=== PATIENT | male | born 1975 | race Caucasian/White ===

== ENCOUNTER → 2016-12-14 | Day surgery (SDC) | payer MEDICAID | END | disposition home or self-care (01) | LOC: FIMAGING 14:18 | PROVIDERS: ATTEND Neurological Surgery | DX: M51.17 Intervertebral disc disorders with radiculopathy, lumbosacral region (principal); M51.37 Other intervertebral disc degeneration, lumbosacral region; M54.5 Low back pain; Z53.9 Procedure and treatment not carried out, unspecified reason ==

== ENCOUNTER 2016-12-15 10:59 | Emergency (ER) | payer MEDICAID ==
[2016-12-15] MEDS ORDERED: ONDANSETRON 4 MG/2 ML VIAL IVP ONE ×2 (11:10→11:49)
[2016-12-15] MEDS ORDERED: NS 1,000 ML IV ONE ×2 (11:10→11:54)
--- NOTE | 2016-12-15 11:41 | EDPHY ---
H & P Time Seen by Provider: 12/15/16 11:21 HPI/ROS: CHIEF COMPLAINT: Vomiting and diarrhea HISTORY OF PRESENT ILLNESS: 41-year-old male presents with vomiting and diarrhea. Onset of nausea, vomiting and diarrhea this morning. Multiple episodes since then. Associated with mild abdominal cramping. No fever and no hematemesis or hematochezia. No known ill contacts or bad food ingestion. Similar episode 10 days ago, which completely resolved. REVIEW OF SYSTEMS: Constitutional: No fever, no chills Eyes: No visual changes ENT: No sore throat Respiratory: No cough, no shortness of breath Cardiac: No chest pain Genitourinary: No hematuria, no dysuria Musculoskeletal: No leg pain or swelling Skin: No rash Neurological: No headache Psychiatric: No depression Past Medical/Surgical History: Denies Social History: No alcohol use PCP: Connie Smoking Status: Former smoker Physical Exam: General Appearance: Alert, pleasant, nontoxic-appearing Eyes: Pupils equal and round, no conjunctival pallor ENT, Mouth: Mucous membranes moist Neck: Normal inspection Respiratory: Lungs are clear to auscultation Cardiovascular: Regular rate and rhythm Gastrointestinal: Abdomen is soft and nontender Neurological: A&O, nonfocal, normal gait Skin: Warm and dry Extremities: normal inspection Psychiatric: Mood and affect normal Constitutional: Initial Vital Signs Temperature (C) 36.3 C 12/15/16 11:04 Heart Rate 84 12/15/16 11:04 Respiratory Rate 16 12/15/16 11:04 Blood Pressure 121/89 H 12/15/16 11:04 O2 Sat (%) 97 12/15/16 11:04 O2 Delivery Mode Room Air Allergies/Adverse Reactions: Penicillins Allergy (Verified 01/22/16 21:55) Hives Home Medications: Medication Instructions Recorded Amitriptyline HCl 12/15/16 Benadryl 12/15/16 CLONAZEPAM 12/15/16 Ondansetron Odt [Zofran Odt 4 mg 4 mg PO Q4 PRN #6 tab 12/15/16 (*)] Tapentadol HCl [Nucynta] 50 mg PO 12/15/16 oxyCODONE IR 12/15/16 Medical Decision Making ED Course/Re-evaluation: IV normal saline 1 L and Zofran 4 mg IV given. Patient had a bowel movement while in the emergency department and this was sent for stool culture. While he was in the bathroom, the nausea increased. Repeat dose of IV Zofran was given. After this, he felt much better. He was able to tolerate ice chips well. Repeat abdominal exam remains unchanged. Precautions given. - Data Points Medications Given: Discontinued Medications Sodium Chloride (Ns) 1,000 mls @ 0 mls/hr IV ONCE ONE PRN Reason: Wide Open Stop: 12/15/16 11:11 Last Admin: 12/15/16 11:14 Dose: 1,000 mls Sodium Chloride (Ns) 1,000 mls @ 0 mls/hr IV ONCE ONE PRN Reason: Wide Open Stop: 12/15/16 11:55 Last Admin: 12/15/16 11:55 Dose: 1,000 mls Ondansetron HCl (Zofran) 4 mg IVP EDNOW ONE Stop: 12/15/16 11:11 Last Admin: 12/15/16 11:15 Dose: 4 mg Ondansetron HCl (Zofran) 4 mg IVP EDNOW ONE Stop: 12/15/16 11:50 Last Admin: 12/15/16 11:55 Dose: 4 mg Departure - Departure Disposition: Home, Routine, Self-Care Clinical Impression: Acute gastroenteritis Condition: Good Instructions: Gastroenteritis (ED) Additional Instructions: Clear liquids for 24 hours. Advance diet as tolerated. Follow-up in 24 hours if vomiting persists. Referrals: CONNIE SUE,. [Primary Care Provider] - As per Instructions Prescriptions: Ondansetron Odt [Zofran Odt 4 mg (*)] 4 mg PO Q4 PRN #6 tab PRN Reason: Nausea
[2016-12-15 13:05] VITALS: BP 141/87; PULSE 85; RESP 19; TEMP 98.2; O2SAT 96
== END 2016-12-15 12:51 | disposition home or self-care (01) ==
LOC: CED 10:59
PROC: 3E0337Z Introduction of Electrolytic and Water Balance Substance into Peripheral Vein, Percutaneous Approach (ICD-10-PCS; principal; 2016-12-15)
DX: K52.9 Noninfective gastroenteritis and colitis, unspecified (principal); Z87.891 Personal history of nicotine dependence
CPT/HCPCS: 96374; J2405

== ENCOUNTER 2016-12-26 12:08 | Day surgery (SDC) | payer MEDICAID ==
[2016-12-26] MEDS ORDERED: MIDAZOLAM 2 MG/2 ML VIAL IVP PRN (12:35)
[2016-12-26] MEDS ORDERED: NALOXONE HCL 0.4 MG/ML INJ IVP PRN (12:35)
[2016-12-26] MEDS ORDERED: FLUMAZENIL 0.5 MG/5 ML MDV IVP PRN (12:35)
[2016-12-26] MEDS ORDERED: MEPERIDINE 25 MG/ML SYR IVP PRN (12:35)
[2016-12-26] MEDS ORDERED: fentaNYL 100 MCG/2 ML INJ IVP PRN (12:35)
[2016-12-26 12:45] VITALS: PULSE 71; RESP 14; TEMP 97.4
[2016-12-26] MEDS ORDERED: NS 1,000 ML IV SCH (12:45)
--- NOTE | 2016-12-26 13:30 | PDPROPOC ---
Sedation Plan of Care Sedation Plan of Care: vital signs stable, mental status noted, patient educated of risks, benefits, alternatives, patient can tolerate sedation ASA Classification: ASA 1 Planned drugs: fentanyl, midazolam Mallampati Score: Class 1 Mallampati Reference Image: Patient passed 3-3-2 rule?: Yes
--- NOTE | 2016-12-26 13:35 | PDGENHP ---
History & Physical Chief Complaint: Lower back pain, previously radiating down right leg. History of Present Illness: Three previous back injections. 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 No history of hepatitis. Heart palpitations. Asthma. Kidney stones on multiple occasions. Relevant Physical Exam: Lungs: clear to auscultation. Heart: RRR 64 bpm, no murmur.
[2016-12-26] MEDS ORDERED: fentaNYL 100 MCG/2 ML INJ ONE (14:09)
[2016-12-26] MEDS ORDERED: MIDAZOLAM 2 MG/2 ML VIAL ONE (14:09)
[2016-12-26] MEDS ORDERED: HYDROmorphONE/DILAUDID 2 MG/ML INJ ONE (14:12)
[2016-12-26] MEDS ORDERED: BUPIVACAINE 0.5% 30 ML SDV ONE (14:34)
[2016-12-26] MEDS ORDERED: LIDOCAINE 1% 300 MG/30 ML SDV ONE (14:34)
[2016-12-26] MEDS ORDERED: IOPAMIDOL (ISOVUE-M 300) 15 ML VIAL ONE (14:35)
--- NOTE | 2016-12-26 14:43 | PDRADPN ---
Radiology Procedure Note Date of Procedure: 12/26/16 Radiologist: Jericho Logan Anesthesia: IV Sedation Pre-op Diagnosis: Back pain Post-op Diagnosis: same Indication: Uncertainty of localization of pain generator Procedure: Bilateral facet injections L3-4, L4-5, L5-S1 Finding(s): 1% xylocaine and 0.5% bupivicaine injected into each facet joint. 0.6--0.7 ml per joint. The patient refused steroid injection, understanding that anesthesia will be gone tomorrow. Inf/Abcess present in the surg proc area at time of surgery?: No EBL: Minimal Complications: 0
[2016-12-26] MEDS ORDERED: ONDANSETRON 4 MG/2 ML VIAL IVP PRN (14:44)
[2016-12-26 15:42] VITALS: BP 116/75; O2SAT 98
== END 2016-12-26 15:40 | disposition home or self-care (01) ==
LOC: FIMAGING 12:08
PROVIDERS: ATTEND Neurological Surgery
PROC: 3E0R3BZ Introduction of Anesthetic Agent into Spinal Canal, Percutaneous Approach (ICD-10-PCS; principal; 2016-12-26 14:47)
DX: M51.17 Intervertebral disc disorders with radiculopathy, lumbosacral region (principal); M51.37 Other intervertebral disc degeneration, lumbosacral region
CPT/HCPCS: J1170; J2250; J2310; J3010; Q9967

== ENCOUNTER 2017-01-07 11:33 | Emergency (ER) | payer MEDICAID ==
[2017-01-07 11:49] VITALS: PULSE 68; RESP 16; TEMP 97.3
--- NOTE | 2017-01-07 12:05 | EDPHY ---
H & P Time Seen by Provider: 01/07/17 11:53 HPI/ROS: CC: right wrist pain HPI: For T 1-year-old medically stable male took a fall yesterday approximately 20 hours ago. He needed to climb into the second-story sliding glass door in order to get his keys as he locked himself out. He knew the door was open. The 1st time to climbing up the he got hold of a bowel started that was actually rotted would it gave wave any fell backward. At the time that he started falling he was approximately 7 feet off the ground. He complains of landing on the right wrist with it in a backward position, as if behind him and then onto his right side - he does complain of a mild swelling and bruising scrape to the right lateral thigh. Declines x-ray of that area. However the right wrist is a different story. He complains quite a bit of discomfort and finds his usual pain regimen for his 3-year-old herniated disc with annular tear as not being sufficient. He had trouble sleeping last night. 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 I thereby caution the man about driving with the injured arm Pt queried and denies: prior hx of substance abuse family history of substance abuse or current or prior psychiatric history. Current pain management program is by a marketing support specialist and patient is aware of the potential of taking extra dosing and problems thereby. Thus, will go ahead and arrange for a 4 day supply of additional medications pending resolution of his symptomatology. He does have a history of left wrist scaphoid fractures x2 with a particular problem with delayed union some 15 years ago while living in [place]. That was back during his avid skateboarding days ROS: Constitutional - feeling well before the fall Head no injury or hematoma. Eyes - no diplopia, blurred vision. ENT - no earache, no fluid from ear. No fluid from nose. No facial injury Neck: no pain or decreased ROM Thorax did not injury to chest or ribs or spine, no shortness of breath Abdominal - denies any abdomen, or back injury. No nausea. His back feels the same as it always does Musculoskeletal - no joint or muscle pain. Integument - no lacerations Neurological - no headache, numbness, tingling, or paresthesias. No focal motor weakness. No amnesia or LOC. No fluid from ear or nose 10 point ROS otherwise negative Smoking Status: Former smoker Physical Exam: Constitutional: Well-nourished, well-developed, no acute distress. No odor of alcohol Neck: He moves his head freely indicating to me that he has no neck discomfort Eyes: Pupils equal and reactive. ENT: Ears are without hemotympanum. Mouth exam, atraumatic. Chest: No signs of splinting respirations. Back: Moves reasonably well into and out of the stretcher in order to have the exact x-rays examined Musculoskeletal: With SPECT to the right hand there is mild soft tissue swelling of all the digits. The skin is clear and intact. There is particular tenderness over the carpal row 1. At the base of digits metacarpals # 4 and 5. No snuffbox tenderness noted. Skin: No observed abrasions or lacerations. Skin is warm and dry. Normal motor and sensation Neuro: Alert and oriented with a GCS of 15. No acute distress. No headache. Psych: Normal mood and affect. Constitutional: Initial Vital Signs Temperature (C) 36.3 C 01/07/17 11:44 Heart Rate 68 01/07/17 11:44 Respiratory Rate 16 01/07/17 11:44 Blood Pressure 115/76 01/07/17 11:44 O2 Sat (%) 94 01/07/17 11:44 O2 Delivery Mode Room Air Allergies/Adverse Reactions: david Allergy (Verified 01/07/17 11:43) Anaphylaxis Penicillins Allergy (Verified 01/07/17 11:43) Hives Home Medications: Medication Instructions Recorded Benadryl 50 mg PO HS PRN 12/15/16 CLONAZEPAM 0.5 mg PO HS 12/15/16 Tapentadol HCl [Nucynta] 100 mg PO QID 12/15/16 oxyCODONE IR 5 mg PO QID 12/15/16 Oxycodone HCl 16 mg PO Q6H PRN #20 capsule 01/07/17 Medical Decision Making - Diagnostics Imaging Results: My Plain Film Review: Plain film of right wrist 4 view series. Interpreted by radiologist. Films reviewed me. [no signs of fracture. ] ED Course/Re-evaluation: As noted above we had discussion regarding pain management. He feels that his concurrent medication dose of Oxy IR 5 mg four times daily is not sufficient. Thus will go ahead and have him increase his dose to 10 mg four times daily p.r.n. in the near term. He will be referred Orthopedics for follow-up and consideration of further diagnostic imaging if he is not having significant improvement. During that time he will be wearing a Velcro splint in order to support and allow the wrist to heal. He is adamant that he feels well otherwise and does not need any further diagnostic evaluation or exam. Splint was applied by the tech under my supervision and showed good alignment and cap refill thereafter Differential Diagnosis: The differential diagnosis includes but is not limited to: Fracture, Sprain, Strain, Dislocation, Nerve injury, Contusion Departure - Departure Disposition: Home, Routine, Self-Care Clinical Impression: Chronic pain, on narcotics Sprain of wrist, right Qualifiers: Encounter type: initial encounter Qualified Code(s): S63.501A - Unspecified sprain of right wrist, initial encounter Condition: Good Instructions: Wrist Sprain (ED) Additional Instructions: You may add Tylenol to your pain medications or take extra Oxy IR - thus the Rx , though at some finite risk of addiction. This is small but not zero. The splint will help a lot, as will elevation. See Ortho in a week to 10 days. Referrals: CONNIE SUE,. [Primary Care Provider] - As per Instructions Stand Alone Forms: Work Limited Duty Prescriptions: Oxycodone HCl 16 mg PO Q6H PRN #20 capsule PRN Reason: pain
[2017-01-07 13:03] VITALS: BP 117/75; O2SAT 96
== END 2017-01-07 12:50 | disposition home or self-care (01) ==
LOC: CED 11:33
DX: S63.501A Unspecified sprain of right wrist, initial encounter (principal); G89.29 Other chronic pain; Z87.891 Personal history of nicotine dependence; W17.89XA Other fall from one level to another, initial encounter; Y99.8 Other external cause status; Y93.39 Activity, other involving climbing, rappelling and jumping off
CPT/HCPCS: 73110-PO

== ENCOUNTER 2018-06-08 18:24 | Emergency (ER) | payer MEDICAID ==
[2018-06-08] MEDS ORDERED: ALBUTEROL 3 ML DEYVIAL IH ONE ×4 (18:25→20:00)
[2018-06-08] MEDS ORDERED: LORazepam 2 MG/ML INJ IVP ONE ×2 (18:44→19:11)
[2018-06-08] MEDS ORDERED: EPINEPHrine 1 MG/10 ML SYR IVP ONE (18:45)
[2018-06-08] MEDS: ALBUTEROL 3 ML DEYVIAL IH ONE ×2 (18:45→18:55)
[2018-06-08] MEDS ORDERED: methylPREDNISolone SOD SUCC 125 MG/2 ML VIAL IVP ONE (18:45)
[2018-06-08] MEDS ORDERED: MAGNESIUM SULF 2 GM/WATER 50 ML IV ONE (18:46)
[2018-06-08] MEDS ORDERED: NS 1,000 ML IV ONE (18:47)
[2018-06-08] MEDS ORDERED: IPRATROPIUM/ALBUTEROL 3 ML DEYVIAL IH ONE (18:56)
--- NOTE | 2018-06-08 19:08 | EDPHY ---
H & P Stated Complaint: shortness of breath since this am Time Seen by Provider: 06/08/18 18:28 HPI/ROS: This patient arrived by private vehicle in respiratory distress tachypneic with very tight wheezing and hypoxia to the 70s. His assisted in providing history explaining that he developed a dry cough last night typical of his asthma exacerbations but was not improving with albuterol inhaler. He thinks that this allergy was triggered by pet birds. Apparently the birds are usually not in close proximity but were over the last 24 hr. He arrives stating "can not breathe". ROS: Constitutional: No recent fevers. He did have a mild URI 2 weeks ago but other than the dry cough over the past 24 hr no other recent infectious symptoms. Pulmonary: Short of breath but he denies any pain. He notices wheezing. Cardiovascular: No chest pain heart palpitations or lightheadedness. No lower extremity swelling. GI: No abdominal pain, nausea or vomiting Integumentary: No skin rash or pallor. No diaphoresis. Neuro: No complaints 10 point review of symptoms is performed and otherwise negative with exception of pertinent positives and negatives listed in HPI and ROS Source: Patient, Family (His assists with history) Exam Limitations: Clinical condition (Initially patient has 1 word dyspnea. Later he is able to for provide more of his history after tx) - Personal History Current Tetanus Diphtheria and Acellular Pertussis (TDAP): Yes Tetanus Vaccine Date: unsure - Medical/Surgical History Hx Asthma: Yes Hx Chronic Respiratory Disease: No Hx Diabetes: No Hx Cardiac Disease: No Hx Renal Disease: No Hx Cirrhosis: No Hx Alcoholism: No Hx HIV/AIDS: No Hx Splenectomy or Spleen Trauma: No Other PMH: med hx [id number],kidney stones. surg-lithotripsy,chronic back pain,asthma,anayphylaxis - Family History Significant Family History: No pertinent family hx - Social History Smoking Status: Light smoker Alcohol Use: Occasionally Drug Use: None - Physical Exam Exam: Vital signs notable for afebrile state, tachycardic, tachypneic and hypoxic. General Appearance: Alert, arrives in respiratory distress. Sitting straight upright gasping for breath. Eyes: Pupils equal and round no pallor or injection. ENT, Mouth: Mucous membranes moist. Oropharynx: Mallampati 1 airway with no erythema or exudates. No angioedema. No dysphonia. No stridor. No drooling. Respiratory: He has 1 word dyspnea he is in a tripod position gasping for breath. Cardiovascular: Tachycardic. No murmur gallop rub is appreciated. No peripheral edema. Gastrointestinal: Abdomen is soft and nontender, no masses, bowel sounds normal. Neurological: GCS 15. Skin: Mild pallor. Musculoskeletal: Neck is supple nontender. Extremities are symmetrical, full range of motion. No calf swelling or tenderness. Psychiatric: Anxious affect. DIFFERENTIAL DIAGNOSIS: After history and physical exam a partial differential diagnosis was considered for asthma exacerbation, acute allergic response, bronchitis, pneumonia, doubt CHF. Constitutional: Initial Vital Signs O2 Sat (%) 79 L 06/08/18 18:40 O2 Delivery Mode Room Air O2 (L/minute) 12 Allergies/Adverse Reactions: david Allergy (Verified 01/07/17 11:43) Anaphylaxis Penicillins Allergy (Verified 01/07/17 11:43) Hives Home Medications: Medication Instructions Recorded Benadryl 50 mg PO HS PRN 12/15/16 CLONAZEPAM 0.5 mg PO HS 12/15/16 Tapentadol HCl [Nucynta] 100 mg PO QID 12/15/16 oxyCODONE IR 5 mg PO QID 12/15/16 Oxycodone HCl 16 mg PO Q6H PRN #20 capsule 01/07/17 Medical Decision Making - Diagnostics EKG Interpretation: 12 lead indication indication dyspnea performed at 7:20 a.m. Sinus tachycardia at 1:25 a.m. Intervals: Normal throughout [place]: P of 63, QRS of 113, T of [address] segments: Normal by my interpretation with exception of a S1 T3 configuration Overall assessment sinus tachycardia with right axis deviation-consider right heart strain consistent with respiratory distress from asthma exacerbation ED Course/Re-evaluation: Patient is placed on a monitor and given supplemental O2 on arrival. Placed in a simple face mask with high-flow with O2 sat improved to the high 80s initially. He is then given sequential nebs Start with a DuoNeb followed by 3 more albuterol nebs total of 10 mg of albuterol over the 1st 45 min with marked improvement. Patient is able to speak in sentences thereafter but still is quite tight. He was switch from face mask to nasal cannula with nebulizer shortly after arrival and gradually improved to an O2 sat in the 90s. Currently at 7:13 p.m., the patient has an O2 sat of 96% on 6 L nasal cannula. He reports subjective improvement but still has mild dyspnea. In addition, the patient was started on 2 g of magnesium IV shortly after arrival, 0.3 of epinephrine IM and for anxiety Ativan 1 mg IV The patient declines chest x-ray. I explained the rationale for obtaining the chest x-ray with his significant leukocytosis 20,000 could consider pneumonia and differential diagnosis as well as potential complications such as pneumothorax from asthma. He understands this potential but declines chest x- ray at this time. Bedside critical care time: 30 min Studies: [place] [id number]. No anemia. Normal platelet count. Basic metabolic panel is normal. At 7:20 p.m. The patient appears comfortable on nasal cannula O2 with respiratory distress resolved. Answered he in all this 's questions. He continues to decline chest x-ray. I spoke with [facility] direct admit number at [phone] requesting hospitalist. Family requests [facility] due to proximity to their home for his admission. I spoke with Dr. Damon, hospitalist with [facility] who accepts this patient for transfer/direct admission at 7:20 p.m., awaiting bed assignment. At 7:30 p.m. On recheck patient's O2 sat is at 90% on 6 L. I ordered another albuterol neb informed him of the accepting physician's name and planned - Data Points Medications Given: Magnesium Sulfate (Magnesium Sulf 2 Gm (Premix)) 50 mls @ 50 mls/hr IV EDNOW ONE Stop: 06/08/18 19:45 Last Admin: 06/08/18 18:34 Dose: 50 mls Discontinued Medications Epinephrine HCl (Epinephrine) 0.3 mg IVP EDNOW ONE Stop: 06/08/18 18:46 Last Admin: 06/08/18 18:25 Dose: 0.3 mg Sodium Chloride (Ns) 1,000 mls @ 0 mls/hr IV ONCE ONE PRN Reason: Wide Open Stop: 06/08/18 18:48 Last Admin: 06/08/18 18:40 Dose: 1,000 mls Lorazepam (Ativan Injection) 1 mg IVP ONCE ONE Stop: 06/08/18 18:45 Last Admin: 06/08/18 18:27 Dose: 1 mg Methylprednisolone Sodium Succinate (Solu-Medrol) 125 mg IVP EDNOW ONE Stop: 06/08/18 18:46 Last Admin: 06/08/18 18:30 Dose: 125 mg Departure - Departure Disposition: Acute Care [facility] Clinical Impression: Hypoxia Asthma exacerbation Qualifiers: Asthma severity: severe Asthma persistence: persistent Qualified Code(s): J45.51 - Severe persistent asthma with (acute) exacerbation Condition: Fair
[2018-06-08] MEDS ORDERED: LEVALBUTEROL 0.63 MG/3 ML DEYVIAL IH ONE (20:04)
[2018-06-08 20:49] VITALS: BP 134/79
== END 2018-06-08 20:41 | disposition short-term general hospital (02) ==
LOC: CED 18:24
DX: R09.02 Hypoxemia (principal); J45.51 Severe persistent asthma with (acute) exacerbation; F17.200 Nicotine dependence, unspecified, uncomplicated
CPT/HCPCS: 80048-ER; 85025-QW-ER; 96365-ER; 96375-ER; 96376-ER; 99291-ER; J2060; J7613